=== PATIENT | male | born 1980 | race Caucasian/White ===

== ENCOUNTER 2016-07-28 10:40 | Emergency (ER) | payer SELFPAY ==
[~2016-07-28] VITALS: Ht 172.7 cm; Wt 63.5 kg
[2016-07-28 10:43] VITALS: BP 136/81
--- NOTE | 2016-07-28 10:48 | NUR ---
PATIENT PRESENTS TO ED FOR PREBOOK CLEARANCE . PT PRESENTS TO THE ED WITH A WOUND TO THE BOTTOM OF HIS LEFT FOOT. PT DOES NOT RECALL HOW HE GOT THE WOUND . DENIES N/V/D; SKIN IS PINK/WARM/DRY; AAOX4 WITH EVEN AND STEADY GAIT; LUNGS CLEAR BL; HR EVEN AND REGULAR; PT DENIES ANY FEVER, CP, SOB, OR COUGH AT THIS TIME; PATIENT STATES PAIN OF 0/10 AT THIS TIME; VSS; PATIENT POSITIONED FOR COMFORT; HOB ELEVATED; BED RAILS UP X2; BED DOWN. ER MD MADE AWARE OF PT STATUS.
--- NOTE | 2016-07-28 10:53 | NUR ---
DOCTOR EVALUATING PATIENT AT BEDSIDE
--- NOTE | 2016-07-28 11:00 | NUR ---
Patient discharged with v/s stable. Written and verbal after care instructions given and explained. Patient verbalized understanding. Ambulatory with steady gait. All questions addressed prior to discharge. Advised to follow up with PMD.
[2016-07-28 11:06] VITALS: BP 136/81
== END 2016-07-28 11:00 ==
LOC: MED 10:40
DX: Z02.89 Encounter for other administrative examinations (principal); R03.0 Elevated blood-pressure reading, without diagnosis of hypertension